=== PATIENT | male | born 1990 | race Caucasian/White ===

== ENCOUNTER 2016-10-22 04:57 | Emergency (ER) | payer SELFPAY ==
[2016-10-22 05:22] VITALS: BP 139/98; PULSE 82; TEMP 99; BMI 44.6
--- NOTE | 2016-10-22 05:28 | PDOC ---
Attending Attestation - Resident Resident Name: Gigi Leigh - ED Attending Attestation I have performed the following: I have examined & evaluated the patient, The case was reviewed & discussed with the resident, I agree w/resident's findings & plan, Exceptions are as noted <Andres Napier - Last Filed: 10/22/16 05:35> - HPI HPI: The patient is a 26 yo M with no pertinent past medical history who presents s/ p splashing hot oil in his L ear and eyes bilaterally 3 days ago. The patient endorses decreased hearing in that side as well. The patient describes his eye pain as discomfort and denies changes in vision. The patient denies chest pain , palpitations and lightheadedness. The patient denies nausea, vomiting and diarrhea. - Physicial Exam PE: GENERAL: Well-appearing, well-nourished. No apparent distress. HEENT: Normocephalic, atraumatic. Bloodshot eyes. PERRL, EOM intact. Erythema of the L auditory canal. Erythema along with fluid at the 6 oclock position CARDIOVASCULAR: Normal S1, S2. Regular rate and rhythm. PULMONARY: Clear to auscultation bilaterally. ABDOMEN: Soft, non-distended, non-tender. EXTREMITIES: Normal ROM in all four extremities. No gross deformities. SKIN: Warm, dry. No rash NEUROLOGICAL: No focal neurological deficits. - Medical Decision Making Documentation prepared by Cinthia Hassan, acting as medical screener for Andres Napier MD/DO. <Cinthia Hassan - Last Filed: 10/22/16 05:40>
[2016-10-22] MEDS ORDERED: AMOX TR/POT CLAV 500MG/125MG TABLETS (FP) PO ONE (05:32)
[2016-10-22] MEDS ORDERED: IBUPROFEN 600 MG TABLET (FP) PO ONE ×2 (05:33→05:36)
[2016-10-22] MEDS ORDERED: AMOX TR/POT CLAV 500MG/125MG TABLETS (FP) ONE (05:35)
--- NOTE | 2016-10-22 05:48 | PDOC ---
History of Present Illness - General Chief Complaint: Ear Problem Stated Complaint: EAR PAIN Time Seen by Provider: 10/22/16 05:11 - History of Present Illness Initial Comments: 10/22/16 05:40 26 year old otherwise healthy male here today complaining of left ear pain. He also is complaining of redness to his eyes. He states that this started when some water got in some oil when he was cooking and splashed up to his face. He denies fevers, chills, nausea and vomiting. He denies vision changes, eye pain, headaches and wounds to his face from the burn. He endorses less ability to hear in the left ear. Past History - Past Medical History Allergies/Adverse Reactions: Allergies Allergy/AdvReac Type Severity Reaction Status Date / Time No Known Allergies Allergy Verified 10/22/16 05:06 Home Medications: Ambulatory Orders No Home Medications 0 dose .ROUTE UTDICT 11/07/12 Amoxicillin/Potassium Clav [Augmentin 500-125 Tablet] 1 each PO BID #9 tablet Suicide Attempt (Hx): No - Surgical History Abdominal Surgery: Yes - Psycho/Social/Smoking Cessation Hx Anxiety: No Suicidal Ideation: No Smoking Status: No Smoking History: Never smoked Have you smoked in the past 12 months: No Number of Cigarettes Smoked Daily: 0 Information on smoking cessation initiated: No Hx Alcohol Use: No Drug/Substance Use Hx: No Substance Use Type: None Hx Substance Use Treatment: No Review of Systems - Review of Systems Constitutional: No: Chills, Fever HEENTM: Yes: Ear Pain, Hearing Loss. No: Eye Pain, Blurred Vision, Recent change in vision, Ear Discharge, Throat Pain Respiratory: No: Cough, Shortness of Breath Cardiac (ROS): No: Chest Pain, Lightheadedness ABD/GI: No: Constipated, Diarrhea, Nausea, Vomiting : Yes: Frequency. No: Burning, Dysuria Neurological: No: Headache *Physical Exam - Vital Signs Last Vital Signs Temp Pulse Resp BP Pulse Ox 99.0 F 82 14 139/98 99 10/22/16 05:06 10/22/16 05:06 10/22/16 05:06 10/22/16 05:06 10/22/16 05:30 - Physical Exam Comments: 10/22/16 05:45 Gen: Well appearing, no acute distress Head: Atraumatic normocephalic. No collins. Eyes: Blood shot bilaterally, HETAL, EOEM intact, no trauma noted to eye Ear: R ear normal, L ear shows erythema in the ear canal and fluid behind the TM \ Mouth: Nonerythematous, mucous membranes moist CV: Regular rate and rhythm, no murmurs rubs or gallops Lung: Clear to auscultation bilaterally, normal work of breathing Abd: Soft, nontender, normal bowel sounds Neuro: Awake, alert, no focal neuro deficits ED Treatment Course - Medications Given in the ED: ED Medications Discontinued Medications Generic Name Dose Route Start Last Admin Trade Name Freq PRN Reason Stop Dose Admin Amoxicillin/Clavulanate Potassium 1 tab 10/22/16 05:32 10/22/16 05:38 Augmentin - 500mg Tablet PO 10/22/16 05:33 1 tab ONCE ONE Administration Ibuprofen 600 mg 10/22/16 05:33 10/22/16 05:38 Motrin - PO 10/22/16 05:34 600 mg ONCE ONE Administration Medical Decision Making - Medical Decision Making 10/22/16 05:48 26M here today complaining of ear pain. Vital signs stable and normal. Exam is consistent with ear infection. No signs that oil burned face or eyes. Will prescribe augmentin 500 mg BID for 5 days and discharge. *DC/Admit/Observation/Transfer Diagnosis at time of Disposition: Otitis media Qualifiers: Otitis media type: unspecified Chronicity: acute Laterality: right - Discharge Dispostion Disposition: HOME Condition at time of disposition: Good Admit: No - Prescriptions Prescriptions: Amoxicillin/Potassium Clav [Augmentin 500-125 Tablet] 1 each PO BID #9 tablet - Patient Instructions Printed Discharge Instructions: Middle Ear Infection - Attestations Physician Attestion: 10/22/16 05:50 I, Dr. Gigi Leigh, attest that this document has been prepared under my direction and personally reviewed by me in its entirety. I further attest, that it accurately reflects all work, treatment, procedures and medical decision -making performed by me.
== END 2016-10-22 06:02 | disposition home or self-care (01) ==
LOC: JER 04:57
DX: H66.92 Otitis media, unspecified, left ear (principal)
CPT/HCPCS: 99282-25

== ENCOUNTER 2017-08-16 10:36 | Emergency (ER) | payer OTHER ==
[2017-08-16 10:48] VITALS: TEMP 98.6; BMI 31.8
--- NOTE | 2017-08-16 11:01 | PDOC ---
History of Present Illness - General History Source: Patient Exam Limitations: No Limitations - History of Present Illness Initial Comments: 08/16/17 11:31 The patient is a 27 year old male with a significant past medical history of diabetes who presents to the emergency department complaining of palpitations. The patient reports intermittent episodes of palpitations of and lightheadedness occurring for 3 days. The patient reports episode of palpitations occurred with running and for duration of 5 minutes. The patient reports he has not been taking medication for diabetes (3 months) since he has been on a good diet. He reports increased fatigue over the passed 3 days. The patient denies chest pain, abdominal pain, shortness of breath, headache, and dizziness. Denies fevers, chills, nausea, vomiting, diarrhea, and constipation. Denies dysuria, frequency, urgency, and hematuria. Allergies: NKA Past surgical history: abdominal, Circumcision (05/2017) Social history: No reported cigarette, alcohol, or drug use. PCP: None. <Zheng Dickerson - Last Filed: 08/16/17 11:39> <Parish Fowler - Last Filed: 08/16/17 17:18> - General Chief Complaint: Palpitations Stated Complaint: HEADACHES Time Seen by Provider: 08/16/17 11:00 Past History <Zheng Dickerson - Last Filed: 08/16/17 11:39> - Past Medical History COPD: No Diabetes: Yes - Surgical History Abdominal Surgery: Yes - Suicide/Smoking/Psychosocial Hx Smoking Status: No Smoking History: Never smoked Have you smoked in the past 12 months: No Number of Cigarettes Smoked Daily: 0 Hx Alcohol Use: No Drug/Substance Use Hx: No Substance Use Type: None Hx Substance Use Treatment: No <Parish Fowler - Last Filed: 08/16/17 17:18> - Past Medical History Allergies/Adverse Reactions: Allergies Allergy/AdvReac Type Severity Reaction Status Date / Time No Known Allergies Allergy Verified 08/16/17 10:39 Home Medications: Ambulatory Orders NK [No Known Home Medication] 08/16/17 Review of Systems - Review of Systems Able to Perform ROS?: Yes Comments:: A complete review of 10 out of 10 review of systems is taken and is negative apart from what is previously mentioned below and in the HPI. <Zheng Dickerson - Last Filed: 08/16/17 11:39> *Physical Exam - Vital Signs Last Vital Signs Temp Pulse Resp BP Pulse Ox 98.6 F 74 19 122/71 98 08/16/17 10:39 08/16/17 10:39 08/16/17 10:39 08/16/17 10:39 08/16/17 10:39 - Physical Exam Comments: Vitals: Triage Vital signs reviewed General Appearance: no acute distress, well nourished well developed, Head: Atraumatic, normocephalic Eyes: Pupils equal reactive round, extraocular movement intact Nose: Nares patent bilaterally Neck: Supple;No Nuchal rigidity Chest Wall: Nontender Cardiac: Regular rate and rhythm, no murmurs, no rubs, no gallops, Lungs: Clear to auscultation bilateral, good air movement bilaterally, Abdomen: Soft, nondistended, normal bowel sounds, nontender to palpation Rectal: Exam deferred Extremities: Full range of motion to all extremities, no cyanosis, clubbing, or edema Skin: Warm and dry, no rashes or lesions, no petechiae Psych: normal mood, normal affect <Zheng Dickerson - Last Filed: 08/16/17 11:39> - Vital Signs Last Vital Signs Temp Pulse Resp BP Pulse Ox 98.6 F 74 19 122/71 98 08/16/17 10:39 08/16/17 10:39 08/16/17 10:39 08/16/17 10:39 08/16/17 10:39 <Parish Fowler - Last Filed: 08/16/17 17:18> Heart Score/ECG Review - ECG Impressions Comment:: ECG reviewed by Dr. Fowler at 11:28. Normal sinus rhythm with sinus arrhythmia. Incomplete right bundle branch block. Borderline ECG. Vent. Rate 73 bpm HI Interval 144 ms QRS duration 112 ms QT/QTc 366/403 ms P-R-T axes 34 -1 25 <Zheng Dickerson - Last Filed: 08/16/17 11:39> ED Treatment Course - LABORATORY CBC & Chemistry Diagram: 08/16/17 11:45 08/16/17 11:45 <Parish Fowler - Last Filed: 08/16/17 17:18> Medical Decision Making - Medical Decision Making The patient is a 27 year old male with a significant past medical history of diabetes who presents to the emergency department complaining of palpitations. Plan: CBC CMP ECG <Zheng Dickerson - Last Filed: 08/16/17 11:39> - Medical Decision Making 08/16/17 13:29 Well-appearing EKG labs within normal limits. Potassium hemolyzed, given patient with normal kidney function and no evidence of hyperkalemia on EKG, No indication to repeat potassium at this time. We have informed the patient follow -up in the clinic. He was advised to drink plenty of fluids. Findings, need for follow-up and strict return instructions discussed with patient. 08/16/17 17:18 <Parish Fowler - Last Filed: 08/16/17 17:18> *DC/Admit/Observation/Transfer - Attestations Scribe Attestion: Documentation prepared by Zheng Dickerson, acting as medical equipment technician for Parish Fowler MD. <Zheng Dickerson - Last Filed: 08/16/17 11:39> - Discharge Dispostion Decision to Admit order: No <Parish Fowler - Last Filed: 08/16/17 17:18> Diagnosis at time of Disposition: Palpitations - Discharge Dispostion Disposition: HOME Condition at time of disposition: Good - Referrals Referrals: [facility] [place] [facility] [place] [Provider Group] Kaleigh Baer MD [Staff Physician] - - Patient Instructions Printed Discharge Instructions: DI for Palpitations Additional Instructions: Drink plenty of fluids. Follow-up with the clinic in 2 days. Instructions were provided on the discharge papers. Return to ED for any severe worsening symptoms or for any concerns. Print Language: GUAMANIAN
[2017-08-16] MEDS ORDERED: SODIUM CHLORIDE 0.9% 1000 ML INFUS.BAG IV ONE (11:16)
[2017-08-16 11:59] LABS: BASO % 0.4 % (0-2.0); EOS % 1.2 % (0-4.5); HEMATOCRIT 46.3 % (35.4-49); HEMOGLOBIN 15.5 GM/dL (11.7-16.9); LYMPH % 26.6 % (8-40); MCH 29.1 pg (25.7-33.7); MCHC 33.5 g/dl (32.0-35.9); MEAN CELL VOLUME 86.8 fl (80-96); MEAN PLT VOLUME 8.2 fl (7.5-11.1); MONO % 8.7 % (3.8-10.2); NEUT % 63.1 % (42.8-82.8); PLATELET COUNT 300 K/MM3 (134-434); RBC 5.33 M/mm3 (4.00-5.60); RDW 13.6 % (11.9-15.9); WHITE BLOOD COUNT 6.1 K/mm3 (4.0-10.0)
[2017-08-16 12:25] LABS: ALBUMIN 3.5 g/dl (3.4-5.0); ANION GAP 6 (8-16); BLOOD UREA NITROGEN 13 mg/dL (7-18); CALCIUM 8.6 mg/dL (8.5-10.1); CHLORIDE 105 mmol/L (98-107); CO2 26 mmol/L (21-32); CREATININE 0.7 mg/dL (0.7-1.3); GLUCOSE,RANDOM 105 mg/dL (74-106); SGPT/ALT 23 U/L (12-78); SODIUM 137 mmol/L (136-145)
[2017-08-16 12:36] LABS: ALK PHOS 93 U/L (45-117); BILIRUBIN,TOTAL 0.8 mg/dL (0.2-1.0); TOT PROT 7.5 g/dl (6.4-8.2)
[2017-08-16 12:42] LABS: SGOT/AST 58 U/L (15-37)
[2017-08-16 13:20] VITALS: BP 103/51; PULSE 84
--- NOTE | 2017-08-16 17:09 | EKG ---
Test Reason : Blood Pressure : / mmHG Vent. Rate : 071 BPM Atrial Rate : 071 BPM P-R Int : 148 ms QRS Dur : 112 ms QT Int : 374 ms P-R-T Axes : 016 -07 027 degrees QTc Int : 406 ms NORMAL SINUS RHYTHM NORMAL ECG NO PREVIOUS ECGS AVAILABLE Confirmed by MD RON, BERNARDO ([id number]) on 08/16/2017 5:08:38 PM Referred By: Confirmed By:BERNARDO VELASQUEZ MD
== END 2017-08-16 13:45 | disposition home or self-care (01) ==
LOC: JER 10:36
DX: R00.2 Palpitations (principal); E10.9 Type 1 diabetes mellitus without complications
CPT/HCPCS: 36415; 71045-TC-FY; 80053; 82962; 84443; 84484; 85025; 93005; 93010; 99283-25; J7030

== ENCOUNTER 2023-05-31 22:32 | Emergency (ER) | payer OTHER ==
[2023-05-31 22:46] VITALS: BMI 29.6
[2023-06-01 00:29] LABS: HEMATOCRIT 52.4 % (35.4-49); HEMOGLOBIN 18.5 GM/dL (11.7-16.9); MCH 31.6 pg (25.7-33.7); MCHC 35.3 g/dl (32.0-35.9); MEAN CELL VOLUME 89.5 fl (80-96); PLATELET COUNT 261 10^3/uL (134-434); RBC 5.85 M/mm3 (4.00-5.60); RDW 13.4 % (11.9-15.9)
[2023-06-01 00:35] LABS: EPI CELLS 4 /uL (0-25.1); HYALINE CASTS 1 /uL (0-3.1); PH,URINE 5.5 (5.0-8.0); URINE APPEARANCE CLEAR; URINE BACTERIA 8 /uL (0-1359); URINE BILIRUBIN NEGATIVE (NEGATIVE); URINE COLOR YELLOW; URINE GLUCOSE (UA) 3+ (NEGATIVE); URINE KETONE 4+ (NEGATIVE); URINE LEUK ESTERASE NEGATIVE (NEGATIVE); URINE NITRITE NEGATIVE (NEGATIVE); URINE PROTEIN 3+ (NEGATIVE); URINE RBC 53 /uL (0-23.9); URINE UROBILINOGEN 0.2 mg/dL (0.2-1.0); URINE WBC 4 /uL (0-25.8)
[2023-06-01] MEDS ORDERED: KETOROLAC TROMETHAMINE 30 MG/1 ML VIAL ONE (00:35)
[2023-06-01] MEDS ORDERED: FAMOTIDINE 10 MG/ML VIAL IVPB ONE (00:35)
[2023-06-01] MEDS: SODIUM CHLORIDE 0.9% 500 ML INFUS.BAG IV ONE ×2 (00:43→05:43)
[2023-06-01] MEDS: KETOROLAC TROMETHAMINE 30 MG/1 ML VIAL IVPUSH ONE (00:43)
[2023-06-01] MEDS: FAMOTIDINE 20 MG/50 ML IVPB 20 MG/50 ML MG IVPB ONE (00:43)
[2023-06-01 00:49] LABS: POTASSIUM 4.3 mmol/L (3.5-5.1)
[2023-06-01 00:52] LABS: ALBUMIN 3.2 g/dl (3.4-5.0); CALCIUM 9.2 mg/dL (8.5-10.1)
[2023-06-01 00:55] LABS: CREATININE 0.6 mg/dL (0.55-1.3)
[2023-06-01 00:56] LABS: BILIRUBIN,TOTAL 0.7 mg/dL (0.2-1)
[2023-06-01 03:06] LABS: ANISOCYTOSIS 0; MACROCYTOSIS 0; OVALOCYTE 1+
[2023-06-01 04:47] VITALS: BP 96/69; PULSE 108; RESP 18; TEMP 98.6
== END 2023-06-01 08:51 | disposition home or self-care (01) ==
LOC: JER 22:32
PROC: 3E033GC Introduction of Other Therapeutic Substance into Peripheral Vein, Percutaneous Approach (ICD-10-PCS; principal; 2023-06-01)
PROC: 3E0333Z Introduction of Anti-inflammatory into Peripheral Vein, Percutaneous Approach (ICD-10-PCS; 2023-06-01)
DX: R10.13 Epigastric pain (principal); R10.31 Right lower quadrant pain
CPT/HCPCS: 36415; 74177-TC; 76705-TC; 80053; 81003; 83690; 85025; 87086; 96365; 96375; 99285-25; Q9967